=== PATIENT | male | born 1945 | race Caucasian/White ===

== ENCOUNTER 2017-10-01 14:06 | Day surgery (SDC) | payer MEDICARE, BC ==
[2017-09-30 16:05] LABS: BASOPHILS # (AUTO) 0.1 X10'3 (0-0.2); BASOPHILS % (AUTO) 0.8 % (0-1); EOSINOPHILS # (AUTO) 0.2 X10'3 (0-0.9); EOSINOPHILS % (AUTO) 2.2 % (0-6); HEMATOCRIT 47.1 % (42.0-52.0); HEMOGLOBIN 16.4 g/dl (14.0-17.9); LYMPHOCYTES # (AUTO) 1.5 X10'3 (1.1-4.8); LYMPHOCYTES % (AUTO) 18.9 % (21-51); MEAN CORPUSCULAR HEMOGLOBIN 33.1 PG (27.0-31.0); MEAN CORPUSCULAR HGB CONC 34.8 % (33.0-36.5); MEAN CORPUSCULAR VOLUME 95.3 FL (78-98); MONOCYTES # (AUTO) 0.9 X10'3 (0-0.9); MONOCYTES % (AUTO) 10.7 % (2-12); NEUTROPHILS # (AUTO) 5.4 X10'3 (1.8-7.7); NEUTROPHILS % (AUTO) 67.4 % (42-75); PLATELET COUNT 259 X10'3 (140-440); RED BLOOD COUNT 4.94 X10'6 (4.70-6.10); RED CELL DISTRIBUTION WIDTH 12.8 % (11.5-14.5); WHITE BLOOD COUNT 8.1 X10'3 (4.5-11.0)
[2017-09-30 16:22] LABS: ALBUMIN 4.1 G/DL (3.4-5.0); ANION GAP 12 (8-16); BLOOD UREA NITROGEN 11 MG/DL (7-18); BUN/CREATININE RATIO 12.4 (5.4-32.0); CALCIUM 9.4 MG/DL (8.5-10.1); CHLORIDE 106 MMOL/L (99-107); CREATININE 0.89 MG/DL (0.60-1.10); GLUCOSE 97 MG/DL (70-104); SODIUM 142 MMOL/L (135-145); TOTAL CARBON DIOXIDE 23.9 MMOL/L (24-32); eGFR 84 ML/MIN
[2017-10-01] VITALS (9 sets, daily range): BP systolic 126–140; BP diastolic 79–93
[~2017-10-01] VITALS: Ht 182.9 cm; Wt 90.5 kg
[2017-10-01] MEDS ORDERED: GLUC-222 PO (14:33)
[2017-10-01] MEDS ORDERED: OMEG1CAP2 PO (14:33)
[2017-10-01] MEDS ORDERED: ASPI-1265 PO (14:33)
[2017-10-01] MEDS ORDERED: NITR0.4T51 SL (14:33)
[2017-10-01] MEDS ORDERED: LOVA40TA2 PO (14:33)
[2017-10-01] MEDS ORDERED: LORazepam 0.5 MG tablet PO PRN (14:55)
[2017-10-01] MEDS ORDERED: normal saline 1000ml 1,000 ML IV SCH (14:55)
[2017-10-01] MEDS ORDERED: diphenhydrAMINE 25mg capsule PO PRN (14:55)
[2017-10-01] MEDS ORDERED: fentaNYL/PF 50MCG/1 ML 2ML syringe ONE (16:21)
[2017-10-01] MEDS ORDERED: midazolam 2 mg/2 ml injection ONE (16:21)
[2017-10-01] MEDS ORDERED: iohexol 350MG/ML 100ml bottle IV ONE (16:21)
[2017-10-01] MEDS ORDERED: LIDOcaine 1% w/EPI 1:100,000 30ml vial (MDV) ONE (16:21)
[2017-10-01] MEDS ORDERED: heparin 1,000unit/ml 10ml vial 10 ML ONE (16:58)
[2017-10-01] MEDS ORDERED: iohexol 350 MG/ML 50ML vial IV ONE (17:23)
[2017-10-01] MEDS ORDERED: ticagrelor 90mg tablet ONE (17:48)
[2017-10-01] MEDS ORDERED: HYDROcodone/acetaminophen 5mg/325mg tablet PO PRN (18:30)
[2017-10-01] MEDS ORDERED: proCHLORperazine 10 MG/2 ml inj IV PRN (18:30)
[2017-10-01] MEDS ORDERED: OXAZEpam 15mg capsule PO PRN (18:30)
[2017-10-01] MEDS ORDERED: HYDROcodone/acetaminophen 10/325mg tab PO PRN (18:30)
[2017-10-01] MEDS ORDERED: ondansetron/PF 4mg/2ml inj IV PRN (18:30)
[2017-10-01] MEDS ORDERED: ticagrelor 90mg tablet PO SCH (20:00)
== END 2017-10-01 20:35 | disposition home or self-care (01) ==
LOC: SSTAY O 14:06
PROVIDERS: ATTEND Internal Medicine Interventional Cardiology
DX: I25.10 Atherosclerotic heart disease of native coronary artery without angina pectoris (principal); I35.0 Nonrheumatic aortic (valve) stenosis; E78.5 Hyperlipidemia, unspecified; I10 Essential (primary) hypertension; Z87.891 Personal history of nicotine dependence; Z79.82 Long term (current) use of aspirin; Z72.89 Other problems related to lifestyle; Z98.890 Other specified postprocedural states; Z79.899 Other long term (current) drug therapy
CPT/HCPCS: 36415; 80048; 85025; 93458; 99152; 99153; A6257; C1725; C1760; C1769; C1874; C9600; J1644; J2250; J3010; J3490; J7030; Q0163; Q9967; A4620